=== PATIENT | male | born 1990 ===

== ENCOUNTER 2018-10-22 17:07 | Emergency (ER) | payer OTHER ==
[2018-10-22 17:13] VITALS: O2SAT 100
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
[2018-10-22 18:33] LABS: ALB/GLOB RATIO 1.4 (1.0-2.1); ALBUMIN 4.4 g/dL (3.5-5.0); ALT/SGPT 27 U/L (21-72); AST/SGOT 21 U/L (17-59); BASO % 0.2 % (0.0-2.0); BLOOD UREA NITROGEN 13 mg/dl (9-20); CALCIUM 9.2 mg/dL (8.4-10.2); EOS % 0.1 % (0.0-4.0); GFR NON-AFRICAN AMERICAN > 60; HEMOGLOBIN 13.9 g/dL (12.0-18.0); LYMPH # 0.9 K/uL (1.0-4.3); LYMPH % 4.1 % (20.0-40.0); MEAN CELL VOLUME 98.8 fl (80.0-94.0); MEAN CORPUSCULAR HEMOGLOBIN 32.1 pg (27.0-31.0); MEAN CORPUSCULAR HGB CONC 32.5 g/dL (33.0-37.0); MEAN PLATELET VOLUME 7.3 fl (7.2-11.7); MONO # 1.2 K/uL (0.0-0.8); MONO % 5.3 % (0.0-10.0); NEUT # 20.3 K/uL (1.8-7.0); NEUT % 90.3 % (50.0-75.0); PLATELET COUNT 281 K/uL (130-400); RBC 4.34 Mil/uL (4.40-5.90); RED CELL DISTRIBUTION WIDTH 14.1 % (11.5-14.5); WHITE BLOOD COUNT 22.5 K/uL (4.8-10.8)
[2018-10-22 19:51] LABS: BANDS 3 % (0-2); LYMPHOCYTE 5 % (20-50); MONOCYTE 6 % (0-10); NEUTROPHIL 85 % (42-75); REACTIVE LYMPHOCYTES 1 % (0-0); TOTAL CELLS COUNTED 100
[2018-10-22 19:52] LABS: PLATELET ESTIMATE NORMAL (NORMAL)
[2018-10-22] MEDS ORDERED: levoFLOXacin 750 MG TAB PO STA (20:05)
[2018-10-22 20:35] VITALS: BP 122/65; PULSE 51; RESP 18; TEMP 98
--- NOTE | 2018-10-23 09:09 | CARD ---
APPROVED REPORT Date of service: 10/22/2018 EKG Measurement Heart [id number] <Conclusion> Marked sinus bradycardia Otherwise normal ECG
--- NOTE | 2018-10-23 09:10 | RAD ---
Date of service: 10/22/2018 HISTORY: elev WBC COMPARISON: No prior. TECHNIQUE: Chest PA and lateral views FINDINGS: LUNGS: No active pulmonary disease. PLEURA: No significant pleural effusion identified. No pneumothorax apparent. CARDIOVASCULAR: No aortic atherosclerotic calcification present. Normal cardiac size. No pulmonary vascular congestion. OSSEOUS STRUCTURES: No significant abnormalities. VISUALIZED UPPER ABDOMEN: Normal. OTHER FINDINGS: None. IMPRESSION: No active disease.
== END 2018-10-22 20:35 | disposition left against medical advice (07) ==
LOC: H.ER 17:07
DX: R00.1 Bradycardia, unspecified (principal); D72.829 Elevated white blood cell count, unspecified; F11.10 Opioid abuse, uncomplicated; E11.65 Type 2 diabetes mellitus with hyperglycemia